=== PATIENT | male | born 1990 | race Caucasian/White ===

== ENCOUNTER 2019-09-21 13:06 | Emergency (ER) | payer OTHER ==
[2019-09-21 13:15] VITALS: BP 112/62; PULSE 70; TEMP 98.2; BMI 38.2
[2019-09-21] MEDS ORDERED: IBUPROFEN 600 MG TABLET (FP) PO ONE ×2 (13:25→13:32)
--- NOTE | 2019-09-21 13:27 | PDOC ---
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 no fall or trauma. no paresthesias or weakness. has been able to ambulate. Review of Systems Abdomen: no abdominal pain MUSCULOSKELETAL: No joint pain and swelling. No muscle pain/arthralgias. +knee pain Back: no back pain SKIN: no redness or skin changes, no discharge, no rash. No wounds. Hematologic: no easy bruising/bleeding. NEUROLOGIC: No weakness, numbness or tingling. Allergic/Immunologic: no allergies All other systems reviewed and negative, or as documented in HPI. physical exam General: NAD, well appearing Abdomen: soft, no tenderness, nondistended Vascular: 2+ DP pulses symmetric and equal. Back: no midline tenderness, no stepoffs, FROM MSK: notable for soft compartments, Cap refill <2 sec. Proximal and distal strength 5/5, - equal and symmetric. Plantar flexion and dorsiflexion 5/5. FROM. Sensation grossly intact to light touch in L1-S1 distribution. no laxity at knee jt. 2+ DP pulses bilaterally. Neuro: alert, no focal neurologic deficits Skin: color normal color, warm and well perfused. Cap refill <2 sec. 09/21/19 13:38 09/21/19 14:30 Past History - Past Medical History Allergies/Adverse Reactions: Allergies Allergy/AdvReac Type Severity Reaction Status Date / Time No Known Allergies Allergy Verified 09/21/19 13:11 Home Medications: Ambulatory Orders NK [No Known Home Medication] 09/21/19 COPD: No - Surgical History Neurologic Surgery: Yes - Psycho Social/Smoking Cessation Hx Smoking History: Current every day smoker Number of Cigarettes Smoked Daily: 1 Information on smoking cessation initiated: Yes Hx Alcohol Use: No Drug/Substance Use Hx: No *Physical Exam - Vital Signs Last Vital Signs Temp Pulse Resp BP Pulse Ox 98.2 F 70 19 112/62 98 09/21/19 13:07 09/21/19 13:07 09/21/19 13:07 09/21/19 13:07 09/21/19 13:07 ED Treatment Course - RADIOLOGY Radiology Studies Ordered: Category Date Time Status KNEE 3 POS-LEFT [RAD] Stat Radiology 09/21/19 13:25 Ordered Medical Decision Making - Medical Decision Making 09/21/19 13:27 Vital Signs Temperature 98.2 F 09/21/19 13:07 Pulse Rate 70 09/21/19 13:07 Respiratory Rate 19 09/21/19 13:07 Blood Pressure 112/62 09/21/19 13:07 O2 Sat by Pulse Oximetry (%) 98 09/21/19 13:07 ddx fracture, sprain, contusion, ligamental injury, meniscal tear. VS reviewed, wnl Xray left knee with 2 screws seen, hardware intact. patella intact, no fx. normal joint space alignment, no acute fx or dislocation. most likely knee sprain/ligamental/meniscal strain/partial tear. Discussed results with patient. JAMES wrap for comfort, with knee immobilizer use <3 days, ROM exercises as tolerated. Rest ice and elevation. Pain control with OTC meds including motrin/tylenol as needed every 6 hours; no narcotics needed. Ortho followup provided. Crutches to assist with ambulation, WBAT. Please return to ED for increased pain, weakness, numbness/tingling 09/21/19 14:31 Discharge - Discharge Information Problems reviewed: Yes Clinical Impression/Diagnosis: Sprain of left knee Qualifiers: Encounter type: initial encounter Involved ligament of knee: unspecified ligament Qualified Code(s): S83.92XA - Sprain of unspecified site of left knee, initial encounter Condition: Stable Disposition: HOME - Admission No - Follow up/Referral Referrals: Christian Humphrey MD [Staff Physician] - Bayron Jang MD [Staff Physician] - - Patient Discharge Instructions Patient Printed Discharge Instructions: DI for Knee Sprain, How to Use an Elastic Bandage-Knee Sprain Additional Instructions: You most likely have musculoskeletal strain Avoid heavy lifting or strenuous activity to minimize further injury you can use the knee immobilizer to help with the healing process, no more than 3 days, as you should continue to range your knee to maintain stability and facilitate healing process This should heal over the next 3-5 days. RICE rest ice elevate the affected area Rest, Ice (20 minutes at a time, 3 times a day), Compression (JAMES wrap or splint ), Elevation (above the heart). Apply ice to the area for 10 minutes every 2 hours for the first 2 days after the injury to reduce swelling. continue with range of motion exercises, as this will facilitate the healing process; avoid being bed bound and immobile. If you have any worsening of symptoms, including severe pain/swelling/redness/ numbness/changes in sensation/weakness/paralysis or any other concerns please return to the Emergency Department immediately. You were given a copy of the results from any tests performed today in the Emergency Department which have results available. Show these to your doctor(s). Some of the tests we sent may not have results yet so please call or have your doctor call the Emergency Department to follow up on all results. Please continue taking your home medications as directed. Do not use alcohol when taking any medication ( especially antibiotics, tylenol or other pain medication) unless you check with the doctor or pharmacist. -May take ibuprofen 400-600mg and/or tylenol 650 to 975 mg every 6 hours as needed for mild to moderate pain, available over the counter. This does not require narcotics, as it will precipitate injuries and falls. - Post Discharge Activity Work/Back to School Note: Back to Work
[2019-09-21] MEDS ORDERED: ACETAMINOPHEN 325 MG TABLET (FP) PO ONE (13:38)
[2019-09-21] MEDS ORDERED: ACETAMINOPHEN 325 MG TABLET (FP) ONE (13:48)
== END 2019-09-21 14:46 | disposition home or self-care (01) ==
LOC: FER 13:06
PROC: 2W3MX1Z Immobilization of Left Lower Extremity using Splint (ICD-10-PCS; principal; 2019-09-21)
DX: S83.92XA Sprain of unspecified site of left knee, initial encounter (principal); W18.39XA Other fall on same level, initial encounter; Y93.89 Activity, other specified; Y92.158 Other place in reform school as the place of occurrence of the external cause; Y99.0 Civilian activity done for income or pay; F17.210 Nicotine dependence, cigarettes, uncomplicated
CPT/HCPCS: 73562-TC-LT-FY; 99283-25

== ENCOUNTER 2021-11-11 09:39 | Emergency (ER) | payer OTHER ==
[2021-11-11 09:45] VITALS: BP 111/61; PULSE 71; TEMP 98; BMI 35.6
[2021-11-11] MEDS ORDERED: DIPHTH,PERTUSS(ACELL),TET 0.5 ML DISP.SYRIN IM ONE ×2 (10:00→10:04)
== END 2021-11-11 10:20 | disposition home or self-care (01) ==
LOC: FER 09:39
PROC: 3E0234Z Introduction of Serum, Toxoid and Vaccine into Muscle, Percutaneous Approach (ICD-10-PCS; principal; 2021-11-11)
DX: S60.512A Abrasion of left hand, initial encounter (principal); W50.3XXA Accidental bite by another person, initial encounter
CPT/HCPCS: 90715; 99282-25

== ENCOUNTER 2022-01-19 10:53 | Emergency (ER) | payer OTHER ==
[2022-01-19 11:03] VITALS: BP 127/89; PULSE 88; TEMP 98.6; BMI 34.3
[2022-01-19] MEDS ORDERED: IBUPROFEN 600 MG TABLET (FP) PO ONE (12:23)
== END 2022-01-19 12:40 | disposition home or self-care (01) ==
LOC: FER 10:53
DX: S49.92XA Unspecified injury of left shoulder and upper arm, initial encounter (principal); W50.0XXA Accidental hit or strike by another person, initial encounter
CPT/HCPCS: 73030-TC-LT-FY; 99283-25